=== PATIENT | male | born 1990 | race African-American/Black ===

== ENCOUNTER 2017-11-14 07:30 | Emergency (ER) | payer MEDICAID ==
[~2017-11-14] VITALS: Ht 185.4 cm; Wt 166.5 kg
[2017-11-14 08:47] LABS: BASOPHIL % 0.5 % (0-2); PLATELET COUNT 218 x10^3mcL (130-400)
[2017-11-14 08:48] LABS: RED CELL DISTRIBUTION WIDTH 15.9 % (11.5-14.5)
[2017-11-14 08:55] LABS: CALCIUM 9.1 mg/dL (8.5-10.1); CARBON DIOXIDE 33.3 mmol/L (21-32); CHLORIDE SERUM 103 mmol/L (98-107); GFR1 > 60 mL/min; GLUCOSE SERUM 113 mg/dL (74-106); POTASSIUM SERUM 3.8 mmol/L (3.5-5.1); SODIUM SERUM 141 mmol/L (136-145)
[2017-11-14 10:19] VITALS: BP 154/109
== END 2017-11-14 12:47 | disposition home or self-care (01) ==
LOC: ED 07:30
PROVIDERS: Emergency Medicine
DX: S80.01XA Contusion of right knee, initial encounter (principal); S50.812A Abrasion of left forearm, initial encounter; I10 Essential (primary) hypertension; V89.2XXA Person injured in unspecified motor-vehicle accident, traffic, initial encounter; Y93.73 Activity, racquet and hand sports; Y92.488 Other paved roadways as the place of occurrence of the external cause; Y99.8 Other external cause status
CPT/HCPCS: 36415; 90715; Q9967

== ENCOUNTER 2018-02-24 19:30 | Emergency (ER) | payer MEDICAID ==
[~2018-02-24] VITALS: Ht 185.4 cm; Wt 166.0 kg
[2018-02-24 19:58] VITALS: Ht 185.4 cm; Wt 166.0 kg
[2018-02-24 20:44] LABS: BASOPHIL % 0.7 % (0-2); PLATELET COUNT 205 x10^3mcL (130-400)
[2018-02-24 20:51] LABS: CALCIUM 8.6 mg/dL (8.5-10.1); CARBON DIOXIDE 33.2 mmol/L (21-32); CHLORIDE SERUM 106 mmol/L (98-107); GFR1 > 60 mL/min; GLUCOSE SERUM 92 mg/dL (74-106); POTASSIUM SERUM 3.7 mmol/L (3.5-5.1); SODIUM SERUM 143 mmol/L (136-145)
[2018-02-24 20:56] LABS: ALBUMIN 3.3 g/dL (3.4-5.0); ALKALINE PHOSPHATASE 59 U/L (46-116); ALT/SGPT 30 U/L (16-63); AST/SGOT 20 U/L (15-37); BILIRUBIN TOTAL 0.19 mg/dL (0.20-1.00); LIPASE 172 IU/L (73-393); RED CELL DISTRIBUTION WIDTH 15.2 % (11.5-14.5); TOTAL PROTEIN, SERUM 7.5 g/dL (6.4-8.2)
[2018-02-24 21:45] VITALS: BP 131/83
== END 2018-02-24 21:45 | disposition home or self-care (01) ==
LOC: ED 19:30
PROVIDERS: Emergency Medicine
DX: R60.0 Localized edema (principal); R07.89 Other chest pain; I10 Essential (primary) hypertension
CPT/HCPCS: 36415; 83880; Q0092

== ENCOUNTER 2018-05-13 08:07 | Emergency (ER) | payer SELFPAY ==
[~2018-05-13] VITALS: Ht 185.4 cm; Wt 165.1 kg
[2018-05-13 08:10] VITALS: Ht 185.4 cm; Wt 165.1 kg
[2018-05-13 08:35] LABS: microscopic required? NO
[2018-05-13 08:54] LABS: UA SPECIFIC GRAVITY <=1.005 (1.005-1.035); urine erythrocyte NEGATIVE (NEGATIVE)
[2018-05-13 08:56] LABS: BASOPHIL % 0.6 % (0-2); PLATELET COUNT 216 x10^3mcL (130-400)
[2018-05-13 08:58] LABS: CALCIUM 8.9 mg/dL (8.5-10.1); CARBON DIOXIDE 35.4 mmol/L (21-32); CHLORIDE SERUM 102 mmol/L (98-107); GFR1 > 60 mL/min; GLUCOSE SERUM 93 mg/dL (74-106); POTASSIUM SERUM 3.9 mmol/L (3.5-5.1); SODIUM SERUM 140 mmol/L (136-145)
[2018-05-13 09:07] LABS: RED CELL DISTRIBUTION WIDTH 15.6 % (11.5-14.5)
[2018-05-13 09:45] VITALS: BP 161/112
== END 2018-05-13 09:45 | disposition home or self-care (01) ==
LOC: ED 08:07
PROVIDERS: Emergency Medicine
DX: G62.9 Polyneuropathy, unspecified (principal); M54.5 Low back pain
CPT/HCPCS: 36415

== ENCOUNTER 2018-08-20 13:07 | Emergency (ER) | payer MEDICAID ==
[~2018-08-20] VITALS: Ht 185.4 cm; Wt 166.5 kg
[2018-08-20 14:32] LABS: BASOPHIL % 0.8 % (0-2); PLATELET COUNT 195 x10^3mcL (130-400)
[2018-08-20 14:36] LABS: RED CELL DISTRIBUTION WIDTH 15.8 % (11.5-14.5)
[2018-08-20 14:43] LABS: UA SPECIFIC GRAVITY 1.015 (1.005-1.035); microscopic required? YES; urine erythrocyte NEGATIVE (NEGATIVE)
[2018-08-20 14:52] LABS: CALCIUM 8.9 mg/dL (8.5-10.1); CARBON DIOXIDE 34.3 mmol/L (21-32); CHLORIDE SERUM 104 mmol/L (98-107); GFR1 > 60 mL/min; GLUCOSE SERUM 89 mg/dL (74-106); POTASSIUM SERUM 3.7 mmol/L (3.5-5.1); SODIUM SERUM 142 mmol/L (136-145)
[2018-08-20 14:56] LABS: ALBUMIN 3.4 g/dL (3.4-5.0); ALKALINE PHOSPHATASE 44 U/L (46-116); ALT/SGPT 26 U/L (16-63); AST/SGOT 21 U/L (15-37); TOTAL PROTEIN, SERUM 7.9 g/dL (6.4-8.2)
[2018-08-20 16:03] VITALS: BP 170/78
== END 2018-08-20 16:03 | disposition home or self-care (01) ==
LOC: ED 13:07
PROVIDERS: Emergency Medicine
DX: I10 Essential (primary) hypertension (principal); G47.30 Sleep apnea, unspecified
CPT/HCPCS: J3490; Q0092

== ENCOUNTER 2018-09-09 10:12 | Emergency (ER) | payer MEDICAID ==
[~2018-09-09] VITALS: Ht 182.9 cm; Wt 166.9 kg
[2018-09-09 10:32] VITALS: Ht 182.9 cm; Wt 166.9 kg
[2018-09-09 14:07] LABS: BASOPHIL % 0.6 % (0-2); PLATELET COUNT 212 x10^3mcL (130-400)
[2018-09-09 14:10] LABS: RED CELL DISTRIBUTION WIDTH 16.1 % (11.5-14.5)
[2018-09-09 14:13] LABS: AMPHETAMINE QUAL UR NONE DETECTED (See below)
[2018-09-09 14:14] LABS: CALCIUM 8.9 mg/dL (8.5-10.1); CARBON DIOXIDE 35.3 mmol/L (21-32); CHLORIDE SERUM 102 mmol/L (98-107); CREATININE SERUM 0.9 mg/dL (0.7-1.3); GFR1 > 60 mL/min; GLUCOSE SERUM 92 mg/dL (74-106); POTASSIUM SERUM 3.7 mmol/L (3.5-5.1); SODIUM SERUM 140 mmol/L (136-145)
[2018-09-09 14:18] LABS: ALBUMIN 3.7 g/dL (3.4-5.0); ALKALINE PHOSPHATASE 57 U/L (46-116); ALT/SGPT 29 U/L (16-63); AST/SGOT 14 U/L (15-37); BILIRUBIN TOTAL 0.2 mg/dL (0.20-1.00); LIPASE 166 IU/L (73-393); TOTAL PROTEIN, SERUM 8.6 g/dL (6.4-8.2)
[2018-09-09 15:14] VITALS: BP 168/94
== END 2018-09-09 16:03 | disposition home or self-care (01) ==
LOC: ED 10:12
PROVIDERS: Emergency Medicine
DX: R10.13 Epigastric pain (principal); R05 Cough; R10.10 Upper abdominal pain, unspecified; I10 Essential (primary) hypertension
CPT/HCPCS: 36415

== ENCOUNTER 2018-09-11 17:47 | Emergency (ER) | payer MEDICAID ==
[~2018-09-11] VITALS: Ht 185.4 cm; Wt 153.3 kg
[2018-09-11 18:06] VITALS: BP 184/113
== END 2018-09-11 20:02 | disposition home or self-care (01) ==
LOC: ED 17:47
DX: J02.9 Acute pharyngitis, unspecified (principal); I10 Essential (primary) hypertension

== ENCOUNTER 2018-12-20 08:44 | Emergency (ER) | payer MEDICAID ==
[~2018-12-20] VITALS: Ht 185.4 cm; Wt 176.0 kg
[2018-12-20 10:50] VITALS: BP 180/113
== END 2018-12-20 10:50 | disposition home or self-care (01) ==
LOC: ED 08:44
DX: S91.114A Laceration without foreign body of right lesser toe(s) without damage to nail, initial encounter (principal); I10 Essential (primary) hypertension; W22.8XXA Striking against or struck by other objects, initial encounter; Y93.89 Activity, other specified; Y92.89 Other specified places as the place of occurrence of the external cause; Y99.8 Other external cause status
CPT/HCPCS: 90715; J2001; Q0092

== ENCOUNTER 2018-12-25 08:28 | Emergency (ER) | payer MEDICAID ==
[~2018-12-25] VITALS: Ht 185.4 cm; Wt 177.4 kg
[2018-12-25 08:44] VITALS: Ht 185.4 cm; Wt 177.4 kg
[2018-12-25 09:38] VITALS: BP 1754/99
== END 2018-12-25 09:38 | disposition home or self-care (01) ==
LOC: ED 08:28
DX: S91.311D Laceration without foreign body, right foot, subsequent encounter (principal); I10 Essential (primary) hypertension; X58.XXXD Exposure to other specified factors, subsequent encounter

== ENCOUNTER 2019-01-01 07:45 | Emergency (ER) | payer OTHER ==
[~2019-01-01] VITALS: Ht 185.4 cm; Wt 179.6 kg
[2019-01-01 07:53] VITALS: Ht 185.4 cm; Wt 179.6 kg
[2019-01-01 08:30] LABS: BASOPHIL % 0.6 % (0-2); PLATELET COUNT 204 x10^3mcL (130-400)
[2019-01-01 08:34] LABS: RED CELL DISTRIBUTION WIDTH 16.1 % (11.5-14.5)
[2019-01-01 08:35] LABS: CALCIUM 8.3 mg/dL (8.5-10.1); CARBON DIOXIDE 35.2 mmol/L (21-32); CHLORIDE SERUM 104 mmol/L (98-107); GFR1 > 60 mL/min; GLUCOSE SERUM 111 mg/dL (74-106); POTASSIUM SERUM 3.9 mmol/L (3.5-5.1); SODIUM SERUM 143 mmol/L (136-145)
[2019-01-01 08:39] LABS: ALBUMIN 3.4 g/dL (3.4-5.0); ALKALINE PHOSPHATASE 54 U/L (46-116); ALT/SGPT 24 U/L (16-63); AST/SGOT 12 U/L (15-37); BILIRUBIN TOTAL 0.21 mg/dL (0.20-1.00); TOTAL PROTEIN, SERUM 7.8 g/dL (6.4-8.2)
[2019-01-01 12:45] VITALS: BP 154/105
== END 2019-01-01 12:45 | disposition home or self-care (01) ==
LOC: ED 07:45
PROVIDERS: Specialist
DX: S91.114D Laceration without foreign body of right lesser toe(s) without damage to nail, subsequent encounter (principal); R60.0 Localized edema; I10 Essential (primary) hypertension; E66.01 Morbid (severe) obesity due to excess calories; X58.XXXD Exposure to other specified factors, subsequent encounter
CPT/HCPCS: 36415; Q0092

== ENCOUNTER 2019-02-23 06:14 | Emergency (ER) | payer OTHER ==
[~2019-02-23] VITALS: Ht 185.4 cm; Wt 179.2 kg
[2019-02-23 06:21] VITALS: Ht 185.4 cm; Wt 179.2 kg
[2019-02-23 07:49] VITALS: BP 173/116
== END 2019-02-23 07:49 | disposition home or self-care (01) ==
LOC: ED 06:14
DX: S91.114A Laceration without foreign body of right lesser toe(s) without damage to nail, initial encounter (principal); I10 Essential (primary) hypertension; W45.8XXA Other foreign body or object entering through skin, initial encounter; Y93.89 Activity, other specified; Y92.89 Other specified places as the place of occurrence of the external cause; Y99.8 Other external cause status
CPT/HCPCS: J2001

== ENCOUNTER 2019-03-09 08:27 | Emergency (ER) | payer OTHER ==
[~2019-03-09] VITALS: Ht 185.4 cm; Wt 178.7 kg
[2019-03-09 08:31] VITALS: Ht 185.4 cm; Wt 178.7 kg
[2019-03-09 09:15] VITALS: BP 179/104
== END 2019-03-09 09:15 | disposition home or self-care (01) ==
LOC: ED 08:27
DX: S91.114D Laceration without foreign body of right lesser toe(s) without damage to nail, subsequent encounter (principal); I10 Essential (primary) hypertension; X58.XXXD Exposure to other specified factors, subsequent encounter

== ENCOUNTER 2020-06-14 10:17 | Inpatient (IN) | payer OTHER, SELFPAY ==
[~2020-06-14] VITALS: Ht 185.4 cm; Wt 181.9 kg
[2020-06-14 11:05] VITALS: Ht 185.4 cm; Wt 181.9 kg
[2020-06-14 12:17] LABS: CALCIUM 8.2 mg/dL (8.5-10.1); CARBON DIOXIDE 38.3 mmol/L (21-32); CHLORIDE SERUM 98 mmol/L (98-107); CREATININE SERUM 1.1 mg/dL (0.7-1.3); GFR1 > 60 mL/min; GLUCOSE SERUM 132 mg/dL (74-106); POTASSIUM SERUM 4.7 mmol/L (3.5-5.1); SODIUM SERUM 138 mmol/L (136-145)
[2020-06-14 12:33] LABS: ALKALINE PHOSPHATASE 38 U/L (46-116); ALT/SGPT 25 U/L (16-63); AST/SGOT 23 U/L (15-37); BILIRUBIN TOTAL 0.42 mg/dL (0.20-1.00); C REACTIVE PROTEIN 8.9 mg/dL (<=0.9); LACTIC DEHYDROGENASE (LDH) 391 U/L (100-190); TOTAL PROTEIN, SERUM 7.7 g/dL (6.4-8.2)
[2020-06-14 12:50] LABS: BASOPHIL % 0.7 % (0.2-1.5)
[2020-06-14 12:52] LABS: PLATELET COUNT 156 x10^3mcL (152-348)
[2020-06-14 12:54] LABS: RED CELL DISTRIBUTION WIDTH 19.6 % (12.1-16.2)
[2020-06-14 13:32] LABS: microscopic required? YES; urine erythrocyte 1+ (NEGATIVE)
[2020-06-14] MEDS ORDERED: MICROZIDE12.5 MG PO (15:19)
[2020-06-14] MEDS ORDERED: ASPIR 8181 MG PO (15:20)
[2020-06-14] MEDS ORDERED: CLARITIN10 MG PO (15:20)
[2020-06-14] MEDS ORDERED: NOR10 PO (15:20)
[2020-06-14] MEDS ORDERED: FLONS NS (15:22)
[2020-06-14 18:27] LABS: CHOLESTEROL/HDL RATIO 4.2
[2020-06-14 18:33] LABS: FREE T4 0.97 ng/dL (0.76-1.46); T4(THYROXINE) 6.1 ug/dL (4.7-13.3)
[2020-06-14 19:25] LABS: T3 TOTAL 0.69 ng/mL
[2020-06-15 07:13] LABS: PLATELET COUNT 172 x10^3mcL (152-348)
[2020-06-15 07:17] LABS: BASOPHIL % 0.2 % (0.2-1.5)
[2020-06-15 07:22] LABS: RED CELL DISTRIBUTION WIDTH 19.5 % (12.1-16.2)
[2020-06-15 07:45] LABS: ALKALINE PHOSPHATASE 40 U/L (46-116); ALT/SGPT 23 U/L (16-63); AST/SGOT 28 U/L (15-37); BILIRUBIN DIRECT 0.09 mg/dL (0.0-0.2); BILIRUBIN TOTAL 0.3 mg/dL (0.20-1.00); CALCIUM 8.8 mg/dL (8.5-10.1); CARBON DIOXIDE 39.2 mmol/L (21-32); CHLORIDE SERUM 96 mmol/L (98-107); GFR1 > 60 mL/min; GLUCOSE SERUM 115 mg/dL (74-106); MAGNESIUM 2.8 mg/dL (1.8-2.4); PHOSPHOROUS 4.5 mg/dL (2.5-4.9); POTASSIUM SERUM 4.8 mmol/L (3.5-5.1); SODIUM SERUM 136 mmol/L (136-145)
[2020-06-15 08:03] LABS: ALBUMIN 3.1 g/dL (3.4-5.0); TOTAL PROTEIN, SERUM 8.4 g/dL (6.4-8.2)
[2020-06-15 14:39] VITALS: BP 121/90
[2020-06-15 17:01] VITALS: BP 147/77
[2020-06-15 20:42] VITALS: BP 125/71
[2020-06-15 21:45] VITALS: BP 125/71
[2020-06-16 05:13] VITALS: BP 131/81
[2020-06-16 08:24] LABS: BASOPHIL % 0.3 % (0.2-1.5); PLATELET COUNT 177 x10^3mcL (152-348)
[2020-06-16 08:52] VITALS: BP 130/70
[2020-06-16 08:53] VITALS: BP 151/80
[2020-06-16 09:02] LABS: RED CELL DISTRIBUTION WIDTH 19.4 % (12.1-16.2)
[2020-06-16 09:25] LABS: ALKALINE PHOSPHATASE 35 U/L (46-116); ALT/SGPT 17 U/L (16-63); AST/SGOT 25 U/L (15-37); BILIRUBIN DIRECT 0.08 mg/dL (0.0-0.2); BILIRUBIN TOTAL 0.28 mg/dL (0.20-1.00); CALCIUM 8.6 mg/dL (8.5-10.1); CARBON DIOXIDE 38.8 mmol/L (21-32); CHLORIDE SERUM 95 mmol/L (98-107); CREATININE SERUM 0.9 mg/dL (0.7-1.3); GFR1 > 60 mL/min; GLUCOSE SERUM 97 mg/dL (74-106); MAGNESIUM 2.7 mg/dL (1.8-2.4); PHOSPHOROUS 3.9 mg/dL (2.5-4.9); POTASSIUM SERUM 4.5 mmol/L (3.5-5.1); SODIUM SERUM 135 mmol/L (136-145); TOTAL PROTEIN, SERUM 7.6 g/dL (6.4-8.2)
[2020-06-16 09:30] LABS: ALBUMIN 2.6 g/dL (3.4-5.0)
[2020-06-16 12:50] VITALS: BP 152/84
[2020-06-16 16:10] VITALS: BP 147/98
[2020-06-16 20:33] VITALS: BP 150/94
[2020-06-17 04:38] VITALS: BP 171/106
[2020-06-17 08:18] LABS: ALKALINE PHOSPHATASE 30 U/L (46-116); ALT/SGPT 25 U/L (16-63); AST/SGOT 20 U/L (15-37); BILIRUBIN DIRECT 0.11 mg/dL (0.0-0.2); BILIRUBIN TOTAL 0.39 mg/dL (0.20-1.00); C REACTIVE PROTEIN 3.5 mg/dL (<=0.9); CALCIUM 8.8 mg/dL (8.5-10.1); CHLORIDE SERUM 94 mmol/L (98-107); CREATININE SERUM 0.9 mg/dL (0.7-1.3); GFR1 > 60 mL/min; GLUCOSE SERUM 86 mg/dL (74-106); MAGNESIUM 2.4 mg/dL (1.8-2.4); PHOSPHOROUS 3.7 mg/dL (2.5-4.9); SODIUM SERUM 135 mmol/L (136-145); TOTAL PROTEIN, SERUM 7.3 g/dL (6.4-8.2)
[2020-06-17 08:19] LABS: BASOPHIL % 0.2 % (0.2-1.5); PLATELET COUNT 210 x10^3mcL (152-348)
[2020-06-17 09:06] LABS: ALBUMIN 2.6 g/dL (3.4-5.0)
[2020-06-17 09:20] VITALS: BP 145/79
[2020-06-17 09:38] LABS: RED CELL DISTRIBUTION WIDTH 19.2 % (12.1-16.2)
[2020-06-17 13:49] VITALS: BP 177/104
[2020-06-17 18:17] VITALS: BP 145/81
[2020-06-17 20:45] VITALS: BP 154/83
[2020-06-18 05:40] VITALS: BP 155/84
[2020-06-18 07:46] LABS: BASOPHIL % 0.4 % (0.2-1.5); PLATELET COUNT 224 x10^3mcL (152-348)
[2020-06-18 08:29] LABS: CALCIUM 8.8 mg/dL (8.5-10.1); CARBON DIOXIDE 39.3 mmol/L (21-32); CHLORIDE SERUM 100 mmol/L (98-107); CREATININE SERUM 0.8 mg/dL (0.7-1.3); GFR1 > 60 mL/min; GLUCOSE SERUM 91 mg/dL (74-106); PHOSPHOROUS 4.4 mg/dL (2.5-4.9); POTASSIUM SERUM 4.2 mmol/L (3.5-5.1); SODIUM SERUM 143 mmol/L (136-145)
[2020-06-18 08:34] LABS: BILIRUBIN DIRECT 0.11 mg/dL (0.0-0.2); BILIRUBIN TOTAL 0.42 mg/dL (0.20-1.00); TOTAL PROTEIN, SERUM 7.4 g/dL (6.4-8.2)
[2020-06-18 08:35] LABS: RED CELL DISTRIBUTION WIDTH 19.7 % (12.1-16.2)
[2020-06-18 08:42] LABS: ALBUMIN 2.6 g/dL (3.4-5.0)
[2020-06-18 09:06] VITALS: BP 157/85
[2020-06-18 12:27] VITALS: BP 148/73
[2020-06-18 17:18] VITALS: BP 154/93
[2020-06-18 21:15] VITALS: BP 156/109
[2020-06-19 06:14] VITALS: BP 134/94
[2020-06-19 07:57] LABS: BASOPHIL % 0.6 % (0.2-1.5); PLATELET COUNT 244 x10^3mcL (152-348)
[2020-06-19 08:39] VITALS: BP 173/102
[2020-06-19 09:35] LABS: CALCIUM 9.2 mg/dL (8.5-10.1); CARBON DIOXIDE 39.4 mmol/L (21-32); CHLORIDE SERUM 94 mmol/L (98-107); CREATININE SERUM 0.8 mg/dL (0.7-1.3); GFR1 > 60 mL/min; GLUCOSE SERUM 99 mg/dL (74-106); PHOSPHOROUS 4.2 mg/dL (2.5-4.9); POTASSIUM SERUM 3.6 mmol/L (3.5-5.1); SODIUM SERUM 135 mmol/L (136-145)
[2020-06-19 09:55] LABS: BILIRUBIN DIRECT 0.14 mg/dL (0.0-0.2); BILIRUBIN TOTAL 0.56 mg/dL (0.20-1.00); TOTAL PROTEIN, SERUM 7.6 g/dL (6.4-8.2)
[2020-06-19 09:56] LABS: ALBUMIN 2.8 g/dL (3.4-5.0)
[2020-06-19 12:00] VITALS: BP 164/94
[2020-06-19 16:14] VITALS: BP 175/94
[2020-06-19 21:45] VITALS: BP 148/94
[2020-06-20 06:01] VITALS: BP 160/101
[2020-06-20 06:55] VITALS: BP 156/85
[2020-06-20 07:14] LABS: CALCIUM 9.2 mg/dL (8.5-10.1); CARBON DIOXIDE 39.6 mmol/L (21-32); CHLORIDE SERUM 100 mmol/L (98-107); CREATININE SERUM 0.9 mg/dL (0.7-1.3); GFR1 > 60 mL/min; GLUCOSE SERUM 94 mg/dL (74-106); SODIUM SERUM 142 mmol/L (136-145)
[2020-06-20 08:45] VITALS: BP 154/93
[2020-06-20 09:29] LABS: BASOPHIL % 0.7 % (0.2-1.5)
[2020-06-20 09:35] LABS: RED CELL DISTRIBUTION WIDTH 19.1 % (12.1-16.2)
[2020-06-20 09:43] LABS: BILIRUBIN DIRECT 0.13 mg/dL (0.0-0.2); BILIRUBIN TOTAL 0.6 mg/dL (0.20-1.00); TOTAL PROTEIN, SERUM 7.2 g/dL (6.4-8.2)
[2020-06-20 10:34] LABS: ALBUMIN 3.1 g/dL (3.4-5.0)
[2020-06-20 11:40] VITALS: BP 156/85
[2020-06-20 12:10] LABS: PLATELET COUNT 209 x10^3mcL (152-348)
[2020-06-20 17:33] VITALS: BP 145/85
[2020-06-20 21:12] VITALS: BP 163/82
[2020-06-21 05:26] VITALS: BP 154/104
[2020-06-21 07:52] LABS: BASOPHIL % 0.4 % (0.2-1.5); PLATELET COUNT 267 x10^3mcL (152-348)
[2020-06-21 08:00] VITALS: BP 160/94
[2020-06-21 08:00] LABS: RED CELL DISTRIBUTION WIDTH 19.4 % (12.1-16.2)
[2020-06-21 08:16] LABS: CALCIUM 9.4 mg/dL (8.5-10.1); CARBON DIOXIDE 37.3 mmol/L (21-32); CHLORIDE SERUM 99 mmol/L (98-107); CREATININE SERUM 0.8 mg/dL (0.7-1.3); GFR1 > 60 mL/min; GLUCOSE SERUM 80 mg/dL (74-106); POTASSIUM SERUM 3.6 mmol/L (3.5-5.1); SODIUM SERUM 140 mmol/L (136-145)
[2020-06-21 12:21] VITALS: BP 129/79
[2020-06-21 15:30] VITALS: BP 146/81
[2020-06-21 20:53] VITALS: BP 156/74
[2020-06-22 04:55] VITALS: BP 154/78
[2020-06-22 07:25] LABS: BASOPHIL % 0.2 % (0.2-1.5); PLATELET COUNT 272 x10^3mcL (152-348)
[2020-06-22 07:48] LABS: CALCIUM 9.2 mg/dL (8.5-10.1); CARBON DIOXIDE 37.5 mmol/L (21-32); CHLORIDE SERUM 101 mmol/L (98-107); CREATININE SERUM 0.9 mg/dL (0.7-1.3); GFR1 > 60 mL/min; GLUCOSE SERUM 77 mg/dL (74-106); POTASSIUM SERUM 3.6 mmol/L (3.5-5.1); SODIUM SERUM 141 mmol/L (136-145)
[2020-06-22 08:26] LABS: RED CELL DISTRIBUTION WIDTH 18.8 % (12.1-16.2)
[2020-06-22 09:10] VITALS: BP 146/101
[2020-06-22 12:31] VITALS: BP 134/73
[2020-06-22 16:15] VITALS: BP 144/67
[2020-06-22 20:11] VITALS: BP 139/82
[2020-06-23 04:59] VITALS: BP 120/93
[2020-06-23 07:33] VITALS: BP 144/85
[2020-06-23 08:08] LABS: BASOPHIL % 0.3 % (0.2-1.5); PLATELET COUNT 266 x10^3mcL (152-348)
[2020-06-23 08:23] LABS: RED CELL DISTRIBUTION WIDTH 18.8 % (12.1-16.2)
[2020-06-23 08:30] LABS: CARBON DIOXIDE 39.1 mmol/L (21-32); CHLORIDE SERUM 101 mmol/L (98-107); CREATININE SERUM 0.8 mg/dL (0.7-1.3); GFR1 > 60 mL/min; GLUCOSE SERUM 84 mg/dL (74-106); MAGNESIUM 2.6 mg/dL (1.8-2.4); POTASSIUM SERUM 3.7 mmol/L (3.5-5.1); SODIUM SERUM 141 mmol/L (136-145)
[2020-06-23 12:01] VITALS: BP 126/68
[2020-06-23 16:13] VITALS: BP 134/85
[2020-06-23 21:56] VITALS: BP 135/93
[2020-06-24 05:40] VITALS: BP 144/90
[2020-06-24 07:36] VITALS: BP 143/92
[2020-06-24 07:58] LABS: BASOPHIL % 0.5 % (0.2-1.5); PLATELET COUNT 225 x10^3mcL (152-348)
[2020-06-24 08:25] LABS: CALCIUM 9.3 mg/dL (8.5-10.1); CARBON DIOXIDE 32.1 mmol/L (21-32); CHLORIDE SERUM 101 mmol/L (98-107); CREATININE SERUM 0.8 mg/dL (0.7-1.3); GFR1 > 60 mL/min; GLUCOSE SERUM 87 mg/dL (74-106); MAGNESIUM 2.6 mg/dL (1.8-2.4); POTASSIUM SERUM 4.2 mmol/L (3.5-5.1); SODIUM SERUM 139 mmol/L (136-145)
[2020-06-24 08:55] LABS: RED CELL DISTRIBUTION WIDTH 18.5 % (12.1-16.2)
[2020-06-24 11:34] VITALS: BP 152/88
[2020-06-24 13:06] VITALS: BP 152/88
[2020-06-24 16:41] VITALS: BP 130/70
[2020-06-24 20:38] VITALS: BP 142/81
[2020-06-25 04:40] VITALS: BP 143/90
[2020-06-25 07:52] VITALS: BP 141/91
[2020-06-25] MEDS ORDERED: NOR10 PO (08:46)
[2020-06-25] MEDS ORDERED: ZES5 PO (08:46)
[2020-06-25] MEDS ORDERED: L40 PO (08:50)
[2020-06-25] MEDS ORDERED: METOPROLOL TART25 M1 PO (08:50)
[2020-06-25 11:53] VITALS: BP 127/79
== END 2020-06-25 18:25 | disposition home or self-care (01) | DRG 720 ==
LOC: ED 10:17 → DU 14:51
PROVIDERS: Emergency Medicine; Family Medicine; Internal Medicine; ADMIT Internal Medicine; ATTEND Internal Medicine
PROC: XW033E5 Introduction of Remdesivir Anti-infective into Peripheral Vein, Percutaneous Approach, New Technology Group 5 (ICD-10-PCS; 2020-06-14)
PROC: 5A09357 Assistance with Respiratory Ventilation, Less than 24 Consecutive Hours, Continuous Positive Airway Pressure (ICD-10-PCS; principal; 2020-06-15)
PROC: 5A09357 Assistance with Respiratory Ventilation, Less than 24 Consecutive Hours, Continuous Positive Airway Pressure (ICD-10-PCS; 2020-06-16)
PROC: 5A09357 Assistance with Respiratory Ventilation, Less than 24 Consecutive Hours, Continuous Positive Airway Pressure (ICD-10-PCS; 2020-06-17)
PROC: XW13325 Transfusion of Convalescent Plasma (Nonautologous) into Peripheral Vein, Percutaneous Approach, New Technology Group 5 (ICD-10-PCS; 2020-06-17)
PROC: 5A09357 Assistance with Respiratory Ventilation, Less than 24 Consecutive Hours, Continuous Positive Airway Pressure (ICD-10-PCS; 2020-06-18)
DX: A41.89 Other specified sepsis (principal); U07.1 COVID-19; J96.01 Acute respiratory failure with hypoxia; J96.02 Acute respiratory failure with hypercapnia; D68.9 Coagulation defect, unspecified; E66.2 Morbid (severe) obesity with alveolar hypoventilation; E44.1 Mild protein-calorie malnutrition; E83.41 Hypermagnesemia; Z68.43 Body mass index [BMI] 50.0-59.9, adult; J12.82 Pneumonia due to coronavirus disease 2019; I10 Essential (primary) hypertension; Z71.3 Dietary counseling and surveillance; R73.03 Prediabetes
CPT/HCPCS: 36600; 82962; 83880; 84439; 85378; 87804; G0378; J0360; J0456; J0696; J1100; J1650; J1940; J3535; J7040; J7050; J7060; U0003

== ENCOUNTER 2020-08-10 18:45 | Emergency (ER) | payer OTHER ==
[~2020-08-10] VITALS: Ht 185.4 cm; Wt 167.4 kg
[~2020-08-10 18:45] MED LIST: ASPIR 8181 MG PO; CLARITIN10 MG PO; FLONS NS; L40 PO; METOPROLOL TART25 M1 PO; MICROZIDE12.5 MG PO; NOR10 PO; ZES5 PO
[2020-08-10 19:18] VITALS: Ht 185.4 cm; Wt 167.4 kg
[2020-08-10] MEDS ORDERED: ULTRAM50 MG PO (20:47)
[2020-08-10 21:29] VITALS: BP 140/89
== END 2020-08-10 21:29 | disposition home or self-care (01) ==
LOC: ED 18:45
DX: R10.9 Unspecified abdominal pain (principal); I10 Essential (primary) hypertension; E66.9 Obesity, unspecified; Z20.822 Contact with and (suspected) exposure to COVID-19; Z88.8 Allergy status to other drugs, medicaments and biological substances
CPT/HCPCS: J1885; U0003